=== PATIENT | male | born 1970 | race Caucasian/White ===

== ENCOUNTER → 2021-08-16 | Day surgery (SDC) | payer OTHER ==
[~2021-08-16] VITALS: Ht 185.4 cm; Wt 114.3 kg
[~2021-08-16] MED LIST: GLYBURIDE5 MG PO; HCTZ25 MG PO; LEVOTHYROXINE75 MC2 PO; LIPITOR40 MG PO; LISINOPRIL40 MG PO; METFORMIN HCL1000 M1 PO
== END | disposition home or self-care (01) ==
LOC: FAS 06:34
DX: Z12.11 Encounter for screening for malignant neoplasm of colon (principal); D12.2 Benign neoplasm of ascending colon; D12.8 Benign neoplasm of rectum; E11.9 Type 2 diabetes mellitus without complications; I10 Essential (primary) hypertension; E78.00 Pure hypercholesterolemia, unspecified; E03.9 Hypothyroidism, unspecified; Z79.899 Other long term (current) drug therapy; Z79.84 Long term (current) use of oral hypoglycemic drugs; E78.5 Hyperlipidemia, unspecified; Z82.49 Family history of ischemic heart disease and other diseases of the circulatory system; Z72.89 Other problems related to lifestyle
CPT/HCPCS: J2250; J2704; J7120